=== PATIENT | female | born 1990 | race Caucasian/White ===

== ENCOUNTER 2016-09-09 20:45 | Emergency (ER) | payer MEDICAID ==
[~2016-09-09] VITALS: Ht 175.3 cm; Wt 59.4 kg
[~2016-09-09 20:45] MED LIST: IBU100LQ
[2016-09-09 21:42] VITALS: BP 128/74
[2016-09-09 22:27] LABS: BUN/Creatinine Ratio 14.9; Calcium 9.1 mg/dL (8.5-10.1); Potassium 3.7 mmol/L (3.5-5.1)
[2016-09-09 22:48] LABS: Basophils # (auto) 0 uL; Basophils % (auto) 0.3 % (0.0-2.0); Eosinophils # (auto) 0 uL; Eosinophils % (auto) 0.2 % (0.0-7.0); Hematocrit 47.8 % (36.0-46.0); Hemoglobin 15.5 g/dL (12.2-16.2); Lymphocytes # (auto) 1.4 uL; Lymphocytes % (auto) 20.7 % (10.0-50.0); Mean Corpuscular Hemoglobin 27.2 pg (28.0-32.0); Mean Corpuscular Hgb Conc. 32.5 g/dL (32.0-36.0); Mean Corpuscular Volume 83.7 fL (80.0-100.0); Mean Platelet Volume 9.4 fL (7.4-10.4); Monocytes # (auto) 0.5 uL; Monocytes % (auto) 7.3 % (0.0-12.0); Neutrophils # (auto) 4.9 uL; Neutrophils % (auto) 71.5 % (37.0-80.0); Platelet Count (auto) 209 10^3/uL (140-450); Red Cell Distribution Width 13.3 % (11.6-16.0); White Blood Cell 6.9 10^3/uL (4.4-10.8)
[2016-09-09 22:53] LABS: INR 1.04 (0.9-1.15); Partial Thromboplastin Time 26.8 sec (22.64-33.71); Prothrombin Time 10.7 sec (9.37-12.3)
== END 2016-09-10 02:02 | disposition left against medical advice (07) ==
LOC: ER 20:49
DX: R10.32 Left lower quadrant pain (principal); Z53.21 Procedure and treatment not carried out due to patient leaving prior to being seen by health care provider
CPT/HCPCS: 36415; 80048; 82150; 83690; 84702; 85025; 85610; 85730

== ENCOUNTER 2016-11-02 16:11 | Emergency (ER) | payer MEDICAID ==
[~2016-11-02] VITALS: Ht 175.3 cm; Wt 58.5 kg
[2016-11-02 16:26] VITALS: BP 108/70
[2016-11-02] MEDS ORDERED: MORPHINE SULF INJ 2 MG/ML SYRINGE 1ML IV ONE (17:15)
[2016-11-02] MEDS ORDERED: ONDANSETRON HCL 4 MG/2 ML VIAL IV ONE (17:15)
[2016-11-02] MEDS ORDERED: LORazepam 0.5 MG TAB PO ONE (17:45)
== END 2016-11-02 18:42 | disposition home or self-care (01) ==
LOC: EDBD 16:11 → ER 16:19
DX: M25.562 Pain in left knee (principal); R07.81 Pleurodynia; J45.909 Unspecified asthma, uncomplicated; F17.210 Nicotine dependence, cigarettes, uncomplicated; V49.49XA Driver injured in collision with other motor vehicles in traffic accident, initial encounter; Y93.89 Activity, other specified; Y99.8 Other external cause status; Y92.410 Unspecified street and highway as the place of occurrence of the external cause
CPT/HCPCS: 73562; 96374; 96375; 99284; J2270; J2405

== ENCOUNTER 2017-01-07 02:40 | Emergency (ER) | payer MEDICAID ==
[~2017-01-07] VITALS: Ht 175.3 cm; Wt 56.7 kg
[2017-01-07 03:24] VITALS: BP 120/76
== END 2017-01-07 05:20 | disposition left against medical advice (07) ==
LOC: ER 02:40
DX: R10.31 Right lower quadrant pain (principal); Z53.21 Procedure and treatment not carried out due to patient leaving prior to being seen by health care provider

== ENCOUNTER 2017-05-05 15:20 | Emergency (ER) | payer MEDICAID ==
[~2017-05-05] VITALS: Ht 175.3 cm; Wt 56.7 kg
[2017-05-05 15:52] VITALS: BP 145/76
[2017-05-05 16:52] LABS: Basophils # (auto) 0.1 uL; Basophils % (auto) 0.9 % (0.0-2.0); Eosinophils # (auto) 0.1 uL; Hematocrit 42.9 % (36.0-46.0); Hemoglobin 14.8 g/dL (12.2-16.2); Lymphocytes # (auto) 1.9 uL; Lymphocytes % (auto) 30.6 % (10.0-50.0); Mean Corpuscular Hemoglobin 29.2 pg (28.0-32.0); Mean Corpuscular Hgb Conc. 34.6 g/dL (32.0-36.0); Mean Corpuscular Volume 84.4 fL (80.0-100.0); Mean Platelet Volume 9.1 fL (6.9-10.8); Monocytes # (auto) 0.6 uL; Neutrophils # (auto) 3.7 uL; Neutrophils % (auto) 58.5 % (37.0-80.0); Nucleated Red Blood Cells % 0.1 %; Platelet Count (auto) 209 10^3/uL (140-450); Red Cell Distribution Width 13.3 % (11.8-14.3); White Blood Cell 6.4 10^3/uL (4.4-10.8)
[2017-05-05 17:03] LABS: Albumin 4.1 g/dL (3.4-5.0); Calcium 9.5 mg/dL (8.5-10.1); Potassium 4.1 mmol/L (3.5-5.1)
[2017-05-05 17:05] LABS: BUN/Creatinine Ratio 16.7
[2017-05-05 17:08] LABS: Bilirubin, Total 0.6 mg/dL (0.2-1.0); Total Protein 7.2 g/dL (6.4-8.2)
== END 2017-05-05 21:14 | disposition left against medical advice (07) ==
LOC: ER 15:23
DX: R10.9 Unspecified abdominal pain (principal); Z53.21 Procedure and treatment not carried out due to patient leaving prior to being seen by health care provider
CPT/HCPCS: 36415; 80053; 85025

== ENCOUNTER 2017-07-07 03:54 | Emergency (ER) | payer MEDICAID ==
[~2017-07-07] VITALS: Ht 175.3 cm; Wt 59.0 kg
[2017-07-07] MEDS ORDERED: SODIUM CHLORIDE 0.9% 1,000 ML IVB ONE (04:22)
[2017-07-07] MEDS ORDERED: ONDANSETRON HCL 4 MG/2 ML VIAL IV ONE (04:30)
[2017-07-07] MEDS ORDERED: KETOROLAC TROMETH 30 MG/ML 1ML VIAL IM ONE (04:30)
[2017-07-07] MEDS ORDERED: NALBUPHINE HCL 10 MG/1ml INJECTION IV ONE (04:30)
[2017-07-07 05:05] LABS: Basophils # (auto) 0 uL; Basophils % (auto) 0.5 % (0.0-2.0); Eosinophils # (auto) 0 uL; Eosinophils % (auto) 0.2 % (0.0-7.0); Hematocrit 43.2 % (36.0-46.0); Hemoglobin 14.7 g/dL (12.2-16.2); Lymphocytes # (auto) 1.5 uL; Lymphocytes % (auto) 20.4 % (10.0-50.0); Mean Corpuscular Hemoglobin 28.7 pg (28.0-32.0); Mean Corpuscular Hgb Conc. 34.1 g/dL (32.0-36.0); Mean Corpuscular Volume 84.1 fL (80.0-100.0); Mean Platelet Volume 8.7 fL (6.9-10.8); Monocytes # (auto) 0.5 uL; Monocytes % (auto) 6.5 % (0.0-12.0); Neutrophils # (auto) 5.3 uL; Neutrophils % (auto) 72.4 % (37.0-80.0); Platelet Count (auto) 206 10^3/uL (140-450); Red Cell Distribution Width 13.2 % (11.8-14.3); White Blood Cell 7.4 10^3/uL (4.4-10.8)
[2017-07-07 05:17] LABS: INR 1.05 (0.9-1.15); Partial Thromboplastin Time 29.2 sec (22.64-33.71); Prothrombin Time 11.4 sec (9.37-12.3)
[2017-07-07 05:30] LABS: Albumin 4.5 g/dL (3.4-5.0); Bilirubin, Total 0.9 mg/dL (0.2-1.0); Calcium 9.4 mg/dL (8.5-10.1); Total Protein 8.2 g/dL (6.4-8.2)
[2017-07-07 06:00] VITALS: BP 120/76
== END 2017-07-07 06:23 | disposition home or self-care (01) ==
LOC: ER 04:07
DX: R10.32 Left lower quadrant pain (principal); J45.909 Unspecified asthma, uncomplicated; F17.210 Nicotine dependence, cigarettes, uncomplicated; Z88.6 Allergy status to analgesic agent
CPT/HCPCS: 36415; 80053; 82150; 83690; 84702; 85025; 85610; 85730; 96360; 96372; 99284; J1885; J7030

== ENCOUNTER 2017-12-17 03:20 | Emergency (ER) | payer MEDICAID ==
[~2017-12-17] VITALS: Ht 175.3 cm; Wt 56.7 kg
[~2017-12-17 03:20] MED LIST changes: -IBU100LQ; +IBUP100S11
[2017-12-17 03:58] LABS: Basophils # (auto) 0.1 uL; Eosinophils # (auto) 0 uL
[2017-12-17 04:01] LABS: Basophils % (auto) 0.7 % (0.0-2.0); Eosinophils % (auto) 0.3 % (0.0-7.0); Hematocrit 41.7 % (36.0-46.0); Hemoglobin 14.1 g/dL (12.2-16.2); Lymphocytes % (auto) 16.6 % (10.0-50.0); Mean Corpuscular Hemoglobin 26.7 pg (28.0-32.0); Mean Corpuscular Hgb Conc. 33.8 g/dL (32.0-36.0); Monocytes % (auto) 8.8 % (0.0-12.0); Neutrophils # (auto) 8.8 uL; Neutrophils % (auto) 73.6 % (37.0-80.0); Platelet Count (auto) 220 10^3/uL (140-450); Red Blood Cells 5.28 10^6/uL (4.0-5.20); Red Cell Distribution Width 13.9 % (11.8-14.3); White Blood Cell 11.9 10^3/uL (4.4-10.8)
[2017-12-17 04:22] LABS: Albumin 3.9 g/dL (3.4-5.0); BUN/Creatinine Ratio 15.7; Bilirubin, Total 0.4 mg/dL (0.2-1.0); Calcium 9.1 mg/dL (8.5-10.1); Magnesium 2.3 mg/dL (1.6-2.6); Total Protein 7.6 g/dL (6.4-8.2)
[2017-12-17] MEDS ORDERED: IOHEXOL 300 MG/ML 100ML BOTTLE IJ ONE (07:44)
[2017-12-17] MEDS ORDERED: KETOROLAC TROMETH 30 MG/ML 1ML VIAL IV ONE (07:45)
[2017-12-17] MEDS ORDERED: ONDANSETRON HCL 4 MG/2 ML VIAL IV ONE (07:45)
[2017-12-17 08:27] VITALS: BP 131/96
== END 2017-12-17 09:10 | disposition home or self-care (01) ==
LOC: ER 03:20
DX: N20.0 Calculus of kidney (principal); J45.909 Unspecified asthma, uncomplicated; F17.210 Nicotine dependence, cigarettes, uncomplicated
CPT/HCPCS: 36415; 74176; 74177; 80053; 82150; 83690; 83735; 84702; 85025; 96374; 99285; J1885; Q9967

== ENCOUNTER 2018-08-30 19:06 | Emergency (ER) | payer MEDICAID ==
[~2018-08-30] VITALS: Ht 175.3 cm; Wt 64.9 kg
[2018-08-30 21:27] LABS: Basophils # (auto) 0 uL; Basophils % (auto) 0.5 % (0.0-2.0); Eosinophils # (auto) 0.1 uL; Eosinophils % (auto) 0.9 % (0.0-7.0); Hematocrit 42.2 % (36.0-46.0); Hemoglobin 14.3 g/dL (12.2-16.2); Lymphocytes # (auto) 1.2 uL; Lymphocytes % (auto) 17.8 % (10.0-50.0); Mean Corpuscular Hemoglobin 28.4 pg (28.0-32.0); Mean Corpuscular Volume 83.6 fL (80.0-100.0); Monocytes # (auto) 0.5 uL; Monocytes % (auto) 7.5 % (0.0-12.0); Neutrophils % (auto) 73.3 % (37.0-80.0); Nucleated Red Blood Cells % 0.1 %; Platelet Count (auto) 182 10^3/uL (140-450); Red Blood Cells 5.04 10^6/uL (4.0-5.20); Red Cell Distribution Width 13.6 % (11.8-14.3); White Blood Cell 6.9 10^3/uL (4.4-10.8)
[2018-08-30 21:46] LABS: Alanine Aminotransferase 17 U/L (13-56); Anion Gap 6 (5-15); Aspartate Aminotransferase 12 U/L (15-37); BUN/Creatinine Ratio 19.5; Blood Urea Nitrogen 17 mg/dL (7-18); Calcium 8.6 mg/dL (8.5-10.1); Carbon Dioxide 23 mmol/L (21-32); Chloride 109 mmol/L (98-107); GFR African American > 60 mL/min; GFR Non-African American > 60 mL/min; Glucose 105 mg/dL (74-106); Potassium 3.5 mmol/L (3.5-5.1); Sodium 138 mmol/L (136-145)
[2018-08-30 21:49] LABS: Alkaline Phosphatase 57 U/L (45-117); Bilirubin, Total 0.5 mg/dL (0.2-1.0); Total Protein 7.7 g/dL (6.4-8.2)
[2018-08-31] MEDS ORDERED: MECLIZINE HCL 25 MG TAB PO ONE (01:30)
[2018-08-31 01:45] VITALS: BP 105/70
[2018-08-31 02:51] LABS: Urine Bacteria NONE SEEN /hpf (None Seen); Urine Blood Negative /uL (Negative); Urine Mucus FEW (None Seen); Urine Specific Gravity 1.028 (1.001-1.035); Urine WBC <1 /hpf (0 - 5)
== END 2018-08-31 02:07 | disposition home or self-care (01) ==
LOC: ER 19:06 → EDBD 19:06 → ER 08-31 02:07
DX: N83.202 Unspecified ovarian cyst, left side (principal); N83.201 Unspecified ovarian cyst, right side; N93.8 Other specified abnormal uterine and vaginal bleeding; J45.909 Unspecified asthma, uncomplicated; F17.210 Nicotine dependence, cigarettes, uncomplicated; F12.90 Cannabis use, unspecified, uncomplicated; F15.90 Other stimulant use, unspecified, uncomplicated; Z79.899 Other long term (current) drug therapy
CPT/HCPCS: 36415; 76830; 76856; 80053; 81001; 84702; 85025

== ENCOUNTER 2020-01-05 13:46 | Emergency (ER) | payer MEDICAID ==
[~2020-01-05] VITALS: Ht 175.3 cm; Wt 63.5 kg
[2020-01-05 13:54] VITALS: BP 119/92
== END 2020-01-05 14:57 | disposition home or self-care (01) ==
LOC: ER 13:46
DX: L25.9 Unspecified contact dermatitis, unspecified cause (principal)
CPT/HCPCS: 73610

== ENCOUNTER 2021-01-12 11:01 | Emergency (ER) | payer MEDICAID ==
[~2021-01-12] VITALS: Ht 175.3 cm; Wt 63.5 kg
[2021-01-12 11:55] VITALS: BP 129/79
== END 2021-01-12 15:13 | disposition home or self-care (01) ==
LOC: ER 11:01
DX: L03.116 Cellulitis of left lower limb (principal); J45.909 Unspecified asthma, uncomplicated; F17.210 Nicotine dependence, cigarettes, uncomplicated; F12.10 Cannabis abuse, uncomplicated; F15.10 Other stimulant abuse, uncomplicated
CPT/HCPCS: 73610; 93971

== ENCOUNTER 2021-02-09 08:05 | Emergency (ER) | payer MEDICAID ==
[~2021-02-09] VITALS: Ht 175.3 cm; Wt 61.2 kg
[2021-02-09 08:33] LABS: Urine Bacteria MANY /hpf (None Seen); Urine Blood Negative /uL (Negative); Urine Mucus FEW (None Seen); Urine Specific Gravity 1.025 (1.001-1.035); Urine WBC 22 /hpf (0 - 5)
[2021-02-09 08:51] LABS: Basophils # (auto) 0 10 ^3/uL (0-0.2); Basophils % (auto) 0.9 % (0.0-2.0); Eosinophils # (auto) 0 10 ^3/uL (0-0.8); Eosinophils % (auto) 0.8 % (0.0-7.0); Hematocrit 40.6 % (36.0-46.0); Hemoglobin 14.3 g/dL (12.2-16.2); Lymphocytes # (auto) 1.8 10 ^3/uL (0.4-5.4); Lymphocytes % (auto) 31.8 % (10.0-50.0); Mean Corpuscular Hemoglobin 29.3 pg (28.0-32.0); Mean Corpuscular Hgb Conc. 35.1 g/dL (32.0-36.0); Mean Corpuscular Volume 83.3 fL (80.0-100.0); Monocytes # (auto) 0.5 10 ^3/uL (0-1.3); Monocytes % (auto) 9.5 % (0.0-12.0); Neutrophils # (auto) 3.1 10 ^3/uL (1.6-8.6); Platelet Count (auto) 165 10^3/uL (140-450); Red Blood Cells 4.87 10^6/uL (4.0-5.20); White Blood Cell 5.5 10^3/uL (4.4-10.8)
[2021-02-09 09:10] LABS: Albumin 4.1 g/dL (3.4-5.0); Potassium 3.9 mmol/L (3.5-5.1)
[2021-02-09 09:13] LABS: BUN/Creatinine Ratio 16.5; Bilirubin, Total 0.6 mg/dL (0.2-1.0); Total Protein 7.4 g/dL (6.4-8.2)
[2021-02-09] MEDS ORDERED: cefTRIAXone 1GM/50ML D5W 50 ML IV ONE (10:15)
[2021-02-09] MEDS ORDERED: SODIUM CHLORIDE 0.9% 1,000 ML IV ONE (10:15)
[2021-02-09 12:10] VITALS: BP 109/74
== END 2021-02-09 12:53 | disposition home or self-care (01) ==
LOC: ER 08:05
DX: R60.0 Localized edema (principal); L03.115 Cellulitis of right lower limb; N39.0 Urinary tract infection, site not specified; J45.909 Unspecified asthma, uncomplicated; F17.210 Nicotine dependence, cigarettes, uncomplicated; Z79.1 Long term (current) use of non-steroidal anti-inflammatories (NSAID)
CPT/HCPCS: 36415; 80053; 81001; 81025; 85025; 85049; 93970; 96365; 99284; J0696

== ENCOUNTER 2021-02-19 21:13 | Emergency (ER) | payer MEDICAID ==
[~2021-02-19] VITALS: Ht 172.7 cm; Wt 59.0 kg
[2021-02-19 21:40] VITALS: BP 138/90
== END 2021-02-20 02:56 | disposition left against medical advice (07) ==
LOC: EDUNIT# 21:13 → EDBD 21:13 → ER 21:15
DX: F41.9 Anxiety disorder, unspecified (principal); Z53.21 Procedure and treatment not carried out due to patient leaving prior to being seen by health care provider

== ENCOUNTER 2021-11-17 18:20 | Emergency (ER) | payer MEDICAID ==
[~2021-11-17] VITALS: Ht 165.1 cm; Wt 77.1 kg
[2021-11-17] MEDS ORDERED: HYDROmorphone HCL 2 MG/ML VL IV ONE (19:15)
[2021-11-17] MEDS ORDERED: ONDANSETRON HCL 4 MG/2 ML VIAL IV ONE (19:15)
[2021-11-17 22:00] VITALS: BP 136/83
[2021-11-17 22:03] LABS: Basophils # (auto) 0.1 10 ^3/uL (0-0.2); Basophils % (auto) 0.5 % (0.0-2.0); Eosinophils # (auto) 0.2 10 ^3/uL (0-0.8); Eosinophils % (auto) 1.3 % (0.0-7.0); Hematocrit 26.8 % (36.0-46.0); Hemoglobin 8.9 g/dL (12.2-16.2); Lymphocytes # (auto) 0.8 10 ^3/uL (0.4-5.4); Lymphocytes % (auto) 4.4 % (10.0-50.0); Mean Corpuscular Hemoglobin 27.6 pg (28.0-32.0); Mean Corpuscular Volume 83.5 fL (80.0-100.0); Monocytes # (auto) 1.8 10 ^3/uL (0-1.3); Monocytes % (auto) 9.3 % (0.0-12.0); Neutrophils # (auto) 15.9 10 ^3/uL (1.6-8.6); Neutrophils % (auto) 84.5 % (37.0-80.0); Red Blood Cells 3.21 10^6/uL (4.0-5.20); Red Cell Distribution Width 14.9 % (11.8-14.3); White Blood Cell 18.9 10^3/uL (4.4-10.8)
[2021-11-17 22:14] LABS: Urine Amorphous Crystal FEW /hpf (None Seen); Urine Bacteria NONE SEEN /hpf (None Seen); Urine Blood Negative /uL (Negative); Urine Specific Gravity 1.015 (1.001-1.035); Urine WBC 3 /hpf (0 - 5)
[2021-11-17 22:23] LABS: Albumin 2.7 g/dL (3.4-5.0); BUN/Creatinine Ratio 12.8; Calcium 8.7 mg/dL (8.5-10.1); Potassium 3.5 mmol/L (3.5-5.1)
[2021-11-17 22:25] LABS: Alcohol, Urine < 3.0 mg/dL (0-10); Amphetamine Screen, Urine NEGATIVE (NEGATIVE); Barbiturate Scree,Urine NEGATIVE (NEGATIVE); Benzodiazephine Screen, Urine NEGATIVE (NEGATIVE); Cannabinoid Screen, Urine NEGATIVE (NEGATIVE); Cocaine Screen, Urine NEGATIVE (NEGATIVE); Opiate Scree,Urine NEGATIVE (NEGATIVE); Phencyclidine Screen, Urine NEGATIVE (NEGATIVE)
[2021-11-17 22:26] LABS: Bilirubin, Total 0.4 mg/dL (0.2-1.0); Total Protein 6.4 g/dL (6.4-8.2)
[2021-11-18] MEDS ORDERED: OXYCODONE W/ ACETAMINOPHEN 5/325MG TABLET PO ONE (01:30)
== END 2021-11-18 01:50 | disposition left against medical advice (07) ==
LOC: ER 18:20 → EDBD 18:20 → ER 11-18 01:50
DX: O99.611 Diseases of the digestive system complicating pregnancy, first trimester (principal); O99.511 Diseases of the respiratory system complicating pregnancy, first trimester; J45.909 Unspecified asthma, uncomplicated; O99.331 Smoking (tobacco) complicating pregnancy, first trimester; Z86.2 Personal history of diseases of the blood and blood-forming organs and certain disorders involving the immune mechanism; Z79.1 Long term (current) use of non-steroidal anti-inflammatories (NSAID); Z3A.12 12 weeks gestation of pregnancy
CPT/HCPCS: 36415; 76700; 80053; 80307; 81001; 82150; 83690; 85025; 93005; 96374; 96375; 99285; J1170; J2405

== ENCOUNTER 2021-11-28 12:32 | Emergency (ER) | payer MEDICAID ==
[~2021-11-28] VITALS: Ht 175.3 cm; Wt 65.8 kg
[2021-11-28 14:59] LABS: Basophils # (auto) 0.1 10 ^3/uL (0-0.2); Eosinophils # (auto) 0.4 10 ^3/uL (0-0.8); Mean Corpuscular Hemoglobin 26.9 pg (28.0-32.0)
[2021-11-28 15:00] LABS: Basophils % (auto) 0.8 % (0.0-2.0); Eosinophils % (auto) 3.6 % (0.0-7.0); Hematocrit 27.2 % (36.0-46.0); Hemoglobin 9.1 g/dL (12.2-16.2); Lymphocytes # (auto) 1.6 10 ^3/uL (0.4-5.4); Lymphocytes % (auto) 13.6 % (10.0-50.0); Mean Corpuscular Hgb Conc. 33.3 g/dL (32.0-36.0); Mean Corpuscular Volume 80.7 fL (80.0-100.0); Monocytes # (auto) 1.2 10 ^3/uL (0-1.3); Monocytes % (auto) 10.3 % (0.0-12.0); Neutrophils # (auto) 8.2 10 ^3/uL (1.6-8.6); Neutrophils % (auto) 71.7 % (37.0-80.0); Red Blood Cells 3.37 10^6/uL (4.0-5.20); White Blood Cell 11.5 10^3/uL (4.4-10.8)
[2021-11-28 15:16] LABS: INR 1.03 (0.9-1.15); Partial Thromboplastin Time 26.5 sec (23.6-33.0)
[2021-11-28 15:17] LABS: Alanine Aminotransferase 27 U/L (13-56); Albumin 2.8 g/dL (3.4-5.0); Anion Gap 7 (5-15); Aspartate Aminotransferase 15 U/L (15-37); BUN/Creatinine Ratio 12.2; Blood Urea Nitrogen 12 mg/dL (7-18); Calcium 8.6 mg/dL (8.5-10.1); Carbon Dioxide 25 mmol/L (21-32); Chloride 106 mmol/L (98-107); GFR African American 85 mL/min; GFR Non-African American 70 mL/min; Glucose 93 mg/dL (74-106); Potassium 3.6 mmol/L (3.5-5.1); Sodium 138 mmol/L (136-145)
[2021-11-28 15:20] LABS: Alkaline Phosphatase 113 U/L (45-117); Bilirubin, Total 0.1 mg/dL (0.2-1.0); Total Protein 6.5 g/dL (6.4-8.2)
[2021-11-28] MEDS ORDERED: HYDROcodone-ACET 5/325MG TAB PO ONE (17:00)
[2021-11-28] MEDS ORDERED: ONDANSETRON HCL 4 MG/2 ML VIAL IV ONE (17:30)
[2021-11-28] MEDS ORDERED: fentaNYL CITRATE 100 MCG/2 ML VL IV ONE (17:30)
[2021-11-28 19:35] VITALS: BP 139/91
== END 2021-11-28 21:35 | disposition home or self-care (01) ==
LOC: ER 12:32 → EDBD 12:32 → ER 21:35
DX: O26.891 Other specified pregnancy related conditions, first trimester (principal); S22.31XA Fracture of one rib, right side, initial encounter for closed fracture; M54.6 Pain in thoracic spine; J45.909 Unspecified asthma, uncomplicated; F17.210 Nicotine dependence, cigarettes, uncomplicated; Z79.1 Long term (current) use of non-steroidal anti-inflammatories (NSAID); Z3A.13 13 weeks gestation of pregnancy; W19.XXXA Unspecified fall, initial encounter; Y93.89 Activity, other specified; Y92.89 Other specified places as the place of occurrence of the external cause; Y99.8 Other external cause status
CPT/HCPCS: 36415; 70450; 71111; 80053; 84702; 85025; 85610; 85730; 96374; 96375; 99285; J2405; J3010

== ENCOUNTER 2021-12-12 01:51 | Emergency (ER) | payer MEDICAID ==
[~2021-12-12] VITALS: Ht 175.3 cm; Wt 65.8 kg
[2021-12-12] MEDS ORDERED: SODIUM CHLORIDE 0.9% 1,000 ML IV ONE (03:15)
[2021-12-12 03:29] LABS: Basophils # (auto) 0.1 10 ^3/uL (0-0.2); Basophils % (auto) 0.6 % (0.0-2.0); Eosinophils # (auto) 0.3 10 ^3/uL (0-0.8); Eosinophils % (auto) 2.3 % (0.0-7.0); Hematocrit 27.9 % (36.0-46.0); Lymphocytes % (auto) 7.8 % (10.0-50.0); Mean Corpuscular Hemoglobin 25.6 pg (28.0-32.0); Mean Corpuscular Hgb Conc. 32.4 g/dL (32.0-36.0); Mean Corpuscular Volume 79.1 fL (80.0-100.0); Monocytes # (auto) 1.2 10 ^3/uL (0-1.3); Monocytes % (auto) 9.8 % (0.0-12.0); Neutrophils # (auto) 9.9 10 ^3/uL (1.6-8.6); Neutrophils % (auto) 79.5 % (37.0-80.0); Nucleated Red Blood Cells % 0.1 %; Red Blood Cells 3.53 10^6/uL (4.0-5.20); Red Cell Distribution Width 15.3 % (11.8-14.3); White Blood Cell 12.5 10^3/uL (4.4-10.8)
[2021-12-12 03:46] LABS: Calcium 8.9 mg/dL (8.5-10.1); Potassium 3.1 mmol/L (3.5-5.1)
[2021-12-12 03:47] LABS: Alcohol, Urine < 3.0 mg/dL (0-10); Amphetamine Screen, Urine NEGATIVE (NEGATIVE); Barbiturate Scree,Urine NEGATIVE (NEGATIVE); Benzodiazephine Screen, Urine NEGATIVE (NEGATIVE); Cannabinoid Screen, Urine POSITIVE (NEGATIVE); Cocaine Screen, Urine NEGATIVE (NEGATIVE); Opiate Scree,Urine NEGATIVE (NEGATIVE); Phencyclidine Screen, Urine NEGATIVE (NEGATIVE)
[2021-12-12 03:50] LABS: BUN/Creatinine Ratio 11.8; Magnesium 1.9 mg/dL (1.6-2.6)
[2021-12-12 03:53] LABS: Urine Bacteria FEW /hpf (None Seen); Urine Blood Negative /uL (Negative); Urine Specific Gravity 1.022 (1.001-1.035); Urine WBC 2 /hpf (0 - 5)
[2021-12-12 03:57] LABS: Bilirubin, Total 0.1 mg/dL (0.2-1.0); Total Protein 6.8 g/dL (6.4-8.2)
[2021-12-12 05:59] VITALS: BP 142/90
[2021-12-12] MEDS ORDERED: ONDANSETRON HCL 4 MG/2 ML VIAL IV ONE (07:00)
== END 2021-12-12 07:48 | disposition home or self-care (01) ==
LOC: ER 01:51 → EDBD 01:51 → ER 07:48
DX: O99.352 Diseases of the nervous system complicating pregnancy, second trimester (principal); R56.9 Unspecified convulsions; O99.512 Diseases of the respiratory system complicating pregnancy, second trimester; J45.909 Unspecified asthma, uncomplicated; O99.332 Smoking (tobacco) complicating pregnancy, second trimester; Z3A.16 16 weeks gestation of pregnancy
CPT/HCPCS: 36415; 70450; 71045; 80053; 80307; 81001; 83735; 84484; 85025; 96361; 96374; 99285; J2405; J7030

== ENCOUNTER 2022-02-19 12:05 | Observation (INO) | payer MEDICAID ==
[~2022-02-19] VITALS: Ht 175.3 cm; Wt 74.8 kg
[2022-02-19 12:05] VITALS: BP 144/79
[2022-02-19] MEDS ORDERED: PREN-96 PO (13:15)
== END 2022-02-19 15:55 | disposition home or self-care (01) ==
LOC: EDUNIT# 12:05 → ER 12:05 → EDBD 12:05 → LDRP 12:17 → UNDOADMOB 12:17 → LDRP 12:47
PROVIDERS: ADMIT Obstetrics & Gynecology; ATTEND Obstetrics & Gynecology
DX: O26.892 Other specified pregnancy related conditions, second trimester (principal); R55 Syncope and collapse; R10.11 Right upper quadrant pain; R51.9 Headache, unspecified; H53.8 Other visual disturbances; O14.92 Unspecified pre-eclampsia, second trimester; O99.512 Diseases of the respiratory system complicating pregnancy, second trimester; J45.909 Unspecified asthma, uncomplicated; O99.342 Other mental disorders complicating pregnancy, second trimester; F41.8 Other specified anxiety disorders; O99.332 Smoking (tobacco) complicating pregnancy, second trimester; F17.210 Nicotine dependence, cigarettes, uncomplicated; Z3A.25 25 weeks gestation of pregnancy
CPT/HCPCS: 59025; 76815; 81002; 94760; 99284; G0378

== ENCOUNTER 2022-04-07 14:57 | Observation (INO) | payer MEDICAID ==
[~2022-04-07] VITALS: Ht 175.3 cm; Wt 79.5 kg
[~2022-04-07 14:57] MED LIST changes: +PREN-96 PO
[2022-04-07 15:00] VITALS: BP 129/68
== END 2022-04-07 17:00 | disposition home or self-care (01) ==
LOC: EDBD 14:57 → ER 14:57 → LDRP 15:30
PROVIDERS: ADMIT Obstetrics & Gynecology; ATTEND Obstetrics & Gynecology
DX: O99.891 Other specified diseases and conditions complicating pregnancy (principal); M54.50 Low back pain, unspecified; O99.513 Diseases of the respiratory system complicating pregnancy, third trimester; J45.909 Unspecified asthma, uncomplicated; O99.333 Smoking (tobacco) complicating pregnancy, third trimester; F17.210 Nicotine dependence, cigarettes, uncomplicated; D64.9 Anemia, unspecified; O99.353 Diseases of the nervous system complicating pregnancy, third trimester; F41.9 Anxiety disorder, unspecified; F32.9 Major depressive disorder, single episode, unspecified; O26.893 Other specified pregnancy related conditions, third trimester; O99.013 Anemia complicating pregnancy, third trimester; Z3A.32 32 weeks gestation of pregnancy; Z98.891 History of uterine scar from previous surgery; W18.30XA Fall on same level, unspecified, initial encounter; Y92.89 Other specified places as the place of occurrence of the external cause; Y93.89 Activity, other specified; Y99.8 Other external cause status
CPT/HCPCS: 59025; 76815; 94760; 99284; G0378

== ENCOUNTER 2022-06-01 21:14 | Emergency (ER) | payer MEDICAID ==
[~2022-06-01] VITALS: Ht 175.3 cm; Wt 72.3 kg
[2022-06-01 21:31] VITALS: BP 140/90
[2022-06-01 22:02] LABS: Eosinophils # (auto) 0.2 10 ^3/uL (0-0.8); Mean Corpuscular Hemoglobin 24.3 pg (28.0-32.0); Mean Corpuscular Hgb Conc. 32.7 g/dL (32.0-36.0); Mean Corpuscular Volume 74.4 fL (80.0-100.0)
[2022-06-01 22:03] LABS: Basophils # (auto) 0.2 10 ^3/uL (0-0.2); Basophils % (auto) 1.4 % (0.0-2.0); Eosinophils % (auto) 1.2 % (0.0-7.0); Hematocrit 38.8 % (36.0-46.0); Hemoglobin 12.7 g/dL (12.2-16.2); Lymphocytes # (auto) 2.8 10 ^3/uL (0.4-5.4); Lymphocytes % (auto) 17.3 % (10.0-50.0); Monocytes % (auto) 12.6 % (0.0-12.0); Neutrophils # (auto) 10.8 10 ^3/uL (1.6-8.6); Neutrophils % (auto) 67.5 % (37.0-80.0); Red Blood Cells 5.22 10^6/uL (4.0-5.20); Red Cell Distribution Width 16.5 % (11.8-14.3)
[2022-06-01 22:21] LABS: Albumin 3.8 g/dL (3.4-5.0); Calcium 8.4 mg/dL (8.5-10.1); Potassium 3.4 mmol/L (3.5-5.1)
[2022-06-01 22:24] LABS: BUN/Creatinine Ratio 11.8
[2022-06-01 22:35] LABS: Bilirubin, Total 0.2 mg/dL (0.2-1.0); Total Protein 8.1 g/dL (6.4-8.2)
== END 2022-06-01 22:15 | disposition left against medical advice (07) ==
LOC: EDBD 21:14 → ER 21:16
DX: R07.89 Other chest pain (principal); R06.02 Shortness of breath; R11.2 Nausea with vomiting, unspecified; R10.2 Pelvic and perineal pain; Z53.21 Procedure and treatment not carried out due to patient leaving prior to being seen by health care provider
CPT/HCPCS: 36415; 71045; 80053; 83880; 84484; 84702; 85025; 93005

== ENCOUNTER 2022-08-04 14:56 | Emergency (ER) | payer MEDICAID ==
[~2022-08-04] VITALS: Ht 175.3 cm; Wt 79.3 kg
[2022-08-04] MEDS ORDERED: SODIUM CHLORIDE 0.9% 1,000 ML IV ONE (15:15)
[2022-08-04 15:22] VITALS: BP 151/91
[2022-08-04 16:17] LABS: Basophils # (auto) 0.1 10 ^3/uL (0-0.2); Eosinophils # (auto) 0.1 10 ^3/uL (0-0.8); Mean Corpuscular Hgb Conc. 31.3 g/dL (32.0-36.0); Monocytes # (auto) 1.4 10 ^3/uL (0-1.3); Nucleated Red Blood Cells % 0.1 %
[2022-08-04 16:19] LABS: Basophils % (auto) 0.9 % (0.0-2.0); Eosinophils % (auto) 1.2 % (0.0-7.0); Hemoglobin 11.2 g/dL (12.2-16.2); Lymphocytes # (auto) 2.7 10 ^3/uL (0.4-5.4); Mean Corpuscular Hemoglobin 23.1 pg (28.0-32.0); Monocytes % (auto) 12.4 % (0.0-12.0); Neutrophils # (auto) 7.3 10 ^3/uL (1.6-8.6); Neutrophils % (auto) 62.5 % (37.0-80.0); Red Blood Cells 4.86 10^6/uL (4.0-5.20); Red Cell Distribution Width 16.3 % (11.8-14.3); White Blood Cell 11.6 10^3/uL (4.4-10.8)
[2022-08-04 17:44] LABS: Albumin 3.7 g/dL (3.4-5.0); Calcium 9.4 mg/dL (8.5-10.1); Potassium 4.3 mmol/L (3.5-5.1)
[2022-08-04 17:48] LABS: BUN/Creatinine Ratio 13.8; Bilirubin, Total 0.4 mg/dL (0.2-1.0)
== END 2022-08-04 20:34 | disposition left against medical advice (07) ==
LOC: ER 14:56 → EDBD 14:56 → ER 20:34
DX: R55 Syncope and collapse (principal); R51.9 Headache, unspecified; D72.829 Elevated white blood cell count, unspecified; F17.210 Nicotine dependence, cigarettes, uncomplicated; F12.10 Cannabis abuse, uncomplicated; F15.10 Other stimulant abuse, uncomplicated; J45.909 Unspecified asthma, uncomplicated
CPT/HCPCS: 36415; 80053; 84702; 85025; 93005

== ENCOUNTER 2024-06-19 06:35 | Emergency (ER) | payer MEDICAID ==
[~2024-06-19] VITALS: Ht 170.2 cm; Wt 63.0 kg
[2024-06-19 06:48] VITALS: BP 142/68; PULSE 102; RESP 20; O2SAT 98
[2024-06-19] MEDS ORDERED: HYDROMORPHONE HCL 1 MG/ML INJ IV ONE (07:00)
[2024-06-19] MEDS ORDERED: ONDANSETRON HCL 4 MG/2 ML VIAL IV ONE (07:00)
[2024-06-19] MEDS ORDERED: SODIUM CHLORIDE 0.9% 1,000 ML IV ONE ×2 (07:00)
--- NOTE | 2024-06-19 07:00 | ED.PDOC ---
GI ASSESSMENT HPI Comments 34Y F with PMHx gallstones, CHF, HTN, asthma, depression, anxiety, and splenectomy presents to ED via EMS for chief complaint abd pain x2hrs. Pt's pain is located at RUQ and is rated at a level of 10/10. Additional symptoms include nausea and vomiting. Pt states she drank eggnog last night and woke up today with the abd pain. Pt drinks alcohol, uses marijuana, and is a smoker. Pt has h/o meth use. No known allergies. Chief Complaint: Abdominal Pain Time Seen by MD: 06:51 Primary Care Provider: Luis Reviewed Notes: Medications, Allergies Allergies: Coded Allergies: NO KNOWN ALLERGIES (Unverified , 04/07/22) Home Meds Reported Medications Vit W/ Ferrous Fumara ( One Daily) Daily Tab, 1 TAB PO DAILY, #90 TAB 3 Refills 02/19/22 Ibuprofen (Motrin) 100 Mg/5 Ml Ud 03/21/10 Information Source: Patient Mode of Arrival: EMS Brought in by: EMS Timing: Hours Duration: Since onset Prehospital treatment: None Quality: Sharp Vomitus: Watery Stool: Brown Severity: Severe Recent: None Recent Hx of: None Pain Location: RUQ Modifying Factors: Nothing Associated sign and symptoms: Nausea, Vomiting, Abdominal Pain Past Medical History PAST MEDICAL HISTORY: Anemia, Anxiety, Asthma, Cancer, CHF, Depression, Gal lstones, HTN, Seizures Surgical History: Surgical History (Other): Splenectomy 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: Endometriosis, Ovarian Cysts Family History Family History: Reviewed,noncontributory to illness Family History (Other): Mother has epilepsy Social History Smoker: Cigarettes, Less Than 1 Pack/Day Alcohol: Rarely Drugs: Marijuana Lives In: Home Constitutional: denies: chills, diaphoresis, fatigue, fever, malaise, sweats, weakness, others EENTM: denies: blurred vision, double vision, ear bleeding, ear discharge, ear drainage, ear pain, ear ringing, eye pain, eye redness, hearing loss, mouth pain, mouth swelling, nasal discharge, nose bleeding, nose congestion, nose pain, photophobia, tearing, throat pain, throat swelling, voice changes, others Respiratory: denies: cough, hemoptysis, orthopnea, SOB at rest, shortness of breath, SOB with excertion, stridor, wheezing, others Cardiovascular: denies: chest pain, dizzy spells, diaphoresis, Dyspnea on exertion, edema, irregular heart beat, left arm pain, lightheadedness, palpitations, PND, syncope, others Gastrointestinal: reports: abdominal pain, nausea, vomiting; denies: abdomen distended, blood streaked bowels, constipated, diarrhea, dysphagia, difficulty swallowing, hematemesis, melena, poor appetite, poor fluid intake, rectal bleeding, rectal pain, others Genitourinary: denies: abnormal vagina bleeding, burning, dyspareunia, dysuria, flank pain, frequency, hematuria, incontinence, pain, , vagina discharge, urgency, others Neurological: denies: dizziness, fainting, headache, left sided numbness, left sided weakness, numbness, paresthesia, pre-existing deficit, right sided numbness, right sided weakness, seizure, speech problems, tingling, tremors, weakness, others Musculoskeletal: denies: back pain, gout, joint pain, joint swelling, muscle pain, muscle stiffness, neck pain, others Integumetry: denies: bruises, change in color, change in hair/nails, dryness, laceration, lesions, lumps, rash, wounds, others Allergic/Immunocompromised: denies: Difficulty Healing, Frequent Infections, Hives, Itching, others Hematologic/Lymphatic: denies: anemia, blood clots, easy bleeding, easy bruising, swollen glands, others Endocrine: denies: excessive hunger, excessive sweating, excessive thirst, excessive urination, flushing, intolerance to cold, intolerance to heat, unexplained weight gain, unexplained weight loss, others Psychiatric: denies: anxiety, bipolar disorder, depression, hopeless, panic disorder, schizophrenia, sleepless, suicidal, others All Other Systems: Reviewed and Negative Physical Exam General Appearance: Moderate Distress, Normal, Severe Distress HEENT: Normal ENT Inspection, Pharynx Normal, TMs Normal Neck: Full Range of Motion, Non-Tender, Normal, Normal Inspection Respiratory: Chest Non-Tender, Lungs Clear, No Accessory Muscle Use, No Respiratory Distress, Normal Breath Sounds Cardiovascular: No Edema, No JVD, No Murmur, No Gallop, Normal Peripheral Pulses, Regular Rate/Rhythm Breast Exam: Deferred Gastrointestinal: No Organomegaly, No Pulsatile Mass, Normal Bowel Sounds, Soft Genitalia: Deferred Pelvic: Deferred Rectal: Deferred Extremities: No calf tenderness, Normal capillary refill, Normal inspection, Normal range of motion, Non-tender, No pedal edema Musculoskeletal : Apperance: Normal 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 Was a procedure done?: No GI differential Dx Differential Diagnosis: Cholecystitis, Constipation, Diverticular disease, Esophagitis, Gastritis/PUD, Gastroenteritis X-Ray, Labs, Meds, VS Vital Signs Date Time Temp Pulse Resp B/P (MAP) Pulse Ox O2 Delivery O2 Flow Rate FiO2 06/19/24 06:48 98.6 102 20 142/68 (92) 98 06/19/24 06:38 99 Lab Test 06/19/24 06:57 Range/Units White Blood Count Pending Red Blood Count Pending Hemoglobin Pending Hematocrit Pending Mean Corpuscular Volume Pending Mean Corpuscular Hemoglobin Pending Mean Corpuscular Hemoglobin Concent Pending Red Cell Distribution Width Pending Platelet Count Pending Mean Platelet Volume Pending Neutrophils (%) (Auto) Pending Lymphocytes (%) (Auto) Pending Monocytes (%) (Auto) Pending Basophils (%) (Auto) Pending Neutrophils # (Auto) Pending Lymphocytes # (Auto) Pending Monocytes # (Auto) Pending Sodium Level Pending Potassium Level Pending Chloride Level Pending Carbon Dioxide Level Pending Anion Gap Pending Blood Urea Nitrogen Pending Creatinine Pending Glomerular Filtration Rate Calc Pending BUN/Creatinine Ratio Pending Serum Glucose Pending Calcium Level Pending Total Bilirubin Pending Patient alert. Complaining of abdominal pain. History of gallstones. Vitals stable. She does have a midline scar. Splenectomy. Severe abdominal pain. Moving all extremities. Reviewed her previous visit. Counseled patient on effects of smoking cigarettes for 15 minutes. Counseled patient on effects of using drugs 15 minutes. Establish intravenous access. Was given fluids. Was given Dilaudid. Was given Zofran. Explained to the patient. Continue cardiac monitoring Time of 1ST Reevaluation: 07:21 Reevaluation 1ST: Unchanged Patient Education/Counseling: Diagnosis, Treatment Family Education/Counseling: No Family Present Departure 1 Departure Time of Disposition: 07:10 Impression: Primary Impression: Acute abdominal pain Disposition: ADMITTED INPATIENT Admit to: Med Surg Condition: Guarded Critical Care Note Critical Care Time?: Yes (45 min-critical care time only) Stability Stability form required: No Heart Score Heart Score: Heart Score Response (Comments) Value History N/A 0 EKG N/A 0 Age N/A 0 Risk Factors N/A 0 Troponin N/A 0 Total 0 I personally scribed for SAQIB MILLER MD ([email or web address]) on 06/19/24 at 07:00. Electronically submitted by Mary Moya ([employer]). I personally scribed for SAQIB MILLER MD ([email or web address]) on 06/19/24 at 07:11. Electronically submitted by Mary Moya ([employer]). SAQIB MILLER MD Jun 19, 2024 07:00
[2024-06-19 07:16] LABS: Basophils # (auto) 0.1 10 ^3/uL (0-0.2); Basophils % (auto) 0.8 % (0.0-2.0); Eosinophils # (auto) 0.1 10 ^3/uL (0-0.8); Eosinophils % (auto) 1.2 % (0.0-7.0); Hematocrit 54.6 % (36.0-46.0); Hemoglobin 17.5 g/dL (12.2-16.2); Lymphocytes # (auto) 3.2 10 ^3/uL (0.4-5.4); Lymphocytes % (auto) 24.9 % (10.0-50.0); Mean Corpuscular Volume 84.3 fL (80.0-100.0); Monocytes # (auto) 1.4 10 ^3/uL (0-1.3); Monocytes % (auto) 11.1 % (0.0-12.0); Nucleated Red Blood Cells % 0.1 %; Platelet Count (auto) 321 10^3/uL (140-450); Red Blood Cells 6.48 10^6/uL (4.0-5.20); Red Cell Distribution Width 16.5 % (11.8-14.3); White Blood Cell 12.9 10^3/uL (4.4-10.8)
[2024-06-19 07:24] LABS: Chloride 105 mmol/L (98-107); Potassium 4.5 mmol/L (3.5-5.1); Sodium 137 mmol/L (136-145)
[2024-06-19 07:25] LABS: Anion Gap 8 (5-15); Calcium 10.7 mg/dL (8.7-10.4); Carbon Dioxide 24 mmol/L (20-31)
[2024-06-19 07:30] LABS: BUN/Creatinine Ratio 10.7 (10.0-20.0); Blood Urea Nitrogen 16 mg/dL (9-23); Glucose 72 mg/dL (74-106)
[2024-06-19 07:33] LABS: Bilirubin, Total 0.6 mg/dL (0.2-1.0)
--- NOTE | 2024-06-19 07:41 | ECG ---
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
== END 2024-06-19 07:37 | disposition left against medical advice (07) ==
LOC: EDBD 06:35 → ER 06:35
DX: R10.11 Right upper quadrant pain (principal); I11.0 Hypertensive heart disease with heart failure; I50.9 Heart failure, unspecified; J45.909 Unspecified asthma, uncomplicated; F17.210 Nicotine dependence, cigarettes, uncomplicated; F12.10 Cannabis abuse, uncomplicated; Z90.81 Acquired absence of spleen
CPT/HCPCS: 36415; 80048; 82247; 85025; 93005

== ENCOUNTER 2024-09-17 21:41 | Emergency (ER) | payer MEDICAID ==
[~2024-09-17] VITALS: Ht 175.3 cm; Wt 77.2 kg
--- NOTE | 2024-09-17 22:07 | ED.PDOC ---
Musculoskeletal HPI Comments 34 y.o female with PMHx of CHF, collapsed lungs and previous right hip sx, presents to the ED via EMS s/p slip and fall today. Patient reports slipping at home on tile lance, states she landed on her right side and now complains of severe right rib pain and moderate pain to right hip. Patient does report positive head trauma but no LOC, nausea, vomiting, lightheadedness, chest pain or new/worsening SOB. Chief Complaint: Fall Injury Time Seen by MD: 21:45 Primary Care Provider: Luis Reviewed Notes: Nurses Notes, Algorithm Design Engineer Notes, Medications, Allergies Allergies: Coded Allergies: NO KNOWN ALLERGIES (Unverified , 04/07/22) Home Meds Reported Medications Vit W/ Ferrous Fumara ( One Daily) Daily Tab, 1 TAB PO DAILY, #90 TAB 3 Refills 02/19/22 Ibuprofen (Motrin) 100 Mg/5 Ml Ud 03/21/10 Information Source: Patient, Emergency Med Personnel Mode of Arrival: EMS Location: Right Extremity Location: Hip, Other (rib ) Timing: Minutes Severity: Moderate Able to Move Extremity: No Bear Weight: Limited Pain: Severe Mechanism: None Circumstances: Fall Onset of Symptoms: After Trauma Symptoms: Pain DVT Risk Factors: CHF History of: Hip Fracture Associated signs and symptoms: Other Past Medical History PAST MEDICAL HISTORY: Anemia, Anxiety, Asthma, Cancer, CHF, Depression, Gallstones, HTN, Seizures 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: Endometriosis, Ovarian Cysts Family History Family History: Reviewed,noncontributory to illness Family History (Other): Mother has epilepsy Social History Smoker: Cigarettes, Less Than 1 Pack/Day Alcohol: Rarely Drugs: Marijuana Lives In: Home Constitutional: denies: chills, diaphoresis, fatigue, fever, malaise, sweats, weakness, others EENTM: denies: blurred vision, double vision, ear bleeding, ear discharge, ear drainage, ear pain, ear ringing, eye pain, eye redness, hearing loss, mouth pain, mouth swelling, nasal discharge, nose bleeding, nose congestion, nose pain, photophobia, tearing, throat pain, throat swelling, voice changes, others Respiratory: denies: cough, hemoptysis, orthopnea, SOB at rest, shortness of breath, SOB with excertion, stridor, wheezing, others Cardiovascular: denies: chest pain, dizzy spells, diaphoresis, Dyspnea on exertion, edema, irregular heart beat, left arm pain, lightheadedness, palpitations, PND, syncope, others Gastrointestinal: denies: abdomen distended, abdominal pain, blood streaked bowels, constipated, diarrhea, dysphagia, difficulty swallowing, hematemesis, melena, nausea, poor appetite, poor fluid intake, rectal bleeding, rectal pain, vomiting, others Genitourinary: denies: abnormal vagina bleeding, burning, dyspareunia, dysuria, flank pain, frequency, hematuria, incontinence, pain, , vagina discharge, urgency, others Neurological: denies: dizziness, fainting, headache, left sided numbness, left sided weakness, numbness, paresthesia, pre-existing deficit, right sided numbness, right sided weakness, seizure, speech problems, tingling, tremors, weakness, others Musculoskeletal: reports: others (right hip and rib pain ); denies: back pain, gout, joint pain, joint swelling, muscle pain, muscle stiffness, neck pain Integumetry: denies: bruises, change in color, change in hair/nails, dryness, laceration, lesions, lumps, rash, wounds, others Allergic/Immunocompromised: denies: Difficulty Healing, Frequent Infections, Hives, Itching, others Hematologic/Lymphatic: denies: anemia, blood clots, easy bleeding, easy bruising, swollen glands, others Endocrine: denies: excessive hunger, excessive sweating, excessive thirst, excessive urination, flushing, intolerance to cold, intolerance to heat, unexplained weight gain, unexplained weight loss, others Psychiatric: denies: anxiety, bipolar disorder, depression, hopeless, panic disorder, schizophrenia, sleepless, suicidal, others All Other Systems: Reviewed and Negative Physical Exam General Appearance: No Apparent Distress, Normal HEENT: Head (Atraumatic. Normocephalic. No hematomas or lacerations. Negative raccoon eyes.), Normal ENT Inspection, Pharynx Normal, TMs Normal Neck: Full Range of Motion, Non-Tender, Normal, Normal Inspection Respiratory: Chest Non-Tender, Lungs Clear, No Accessory Muscle Use, No Respiratory Distress, Normal Breath Sounds Cardiovascular: No Edema, No JVD, No Murmur, No Gallop, Normal Peripheral Pulses, Regular Rate/Rhythm Breast Exam: Deferred Gastrointestinal: No Organomegaly, Non Tender, No Pulsatile Mass, Normal Bowel Sounds, Soft Genitalia: Deferred Pelvic: Deferred Rectal: Deferred Extremities: Tender (moderate tenderness to right leg and hip ), Other (No swelling, deformities, contusions, shortening, or inversion ) Musculoskeletal : Location: Right Extremity Location: Other (rib) Apperance: Tenderness: Severe (Right lateral rib ) 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 Was a procedure done?: No Differential Diagnosis EXT Differential Diagnosis: Fracture, Sprain, Dislocation, Contusion, Strain Other Differential Diagnosis Pneumothorax, hemothorax X-Ray, Labs, Meds, VS Vital Signs Date Time Temp Pulse Resp B/P (MAP) Pulse Ox O2 Delivery O2 Flow Rate FiO2 09/17/24 22:57 70 20 114/71 09/17/24 21:52 97.9 70 22 104/71 (82) 99 Current Medications Medications (Trade) Dose Ordered Sig/Mike Route Start Time Stop Time Status Last Admin Morphine Sulfate 4 mg ONCE ONCE IM 09/17/24 22:15 09/17/24 22:16 DC 09/17/24 22:57 Ondansetron HCl (Zofran Po) 4 mg ONCE ONCE PO 09/17/24 22:15 09/17/24 22:16 DC 09/17/24 22:57 X-Ray, Labs, Meds, VS Comment CT Chest/Abd/Pelv IMPRESSION: 1. Scattered Chronic appearing bilateral rib fractures. 2. No noncontrast evidence of acute visceral injury or acute fracture 3. Dilated main pulmonary artery measuring 3.4 cm which can be seen in the setting of pulmonary hypertension. 4. Cholelithiasis. 5. Marked atrophy of the left kidney 6. Mild distal colonic diverticulosis 7. Circumferential bladder wall thickening, nonspecific. Correlate with urinalysis if there is clinical concern for cystitis XR Left Femur FINDINGS/IMPRESSION: : There is no evidence of acute fracture or dislocation. Multiple plates and multiple screw fixation of the right pelvis. Overlying soft tissues are intact MDM: Patient with history as above presented with right rib and right hip pain. History obtained from patient. Patient was nontoxic, stable, afebrile, ambulatory, no acute distress. Exam as above. Independently reviewed imaging. CT chest/abdomen/pelvis did not show any acute fractures or visceral injury. Left femur x-ray did not show acute fracture. Reviewed external records. All findings were discussed with the patient. Differential diagnosis considered. Overall presentation is consistent with contusion. Low suspicion for acute fracture, dislocation, TBI, intracranial bleed. Patient was treated with morphine with improvement in symptoms. Patient was reevaluated and vital signs were reviewed. Consideration was given for admission, but the patient was stable for outpatient management. Patient states that she did not want any pain medications prescribed. She states that she has ibuprofen. Disposition: Discussed the need to follow up diagnostics, including incidental findings. Discharged the patient with instructions to obtain outpatient follow up in 1-2 days of today's symptoms and findings, with strict return precautions if patient develops new or worsening symptoms. This medical document was created using the [employer] dictation system. Although this document has been carefully reviewed, there may still be some phonetic and typographical errors, which are due to imperfections of the software program, and do not reflect any compromise in the patient's medical care. Time of 1ST Reevaluation: 22:18 Reevaluation 1ST: Unchanged Time of 2ND Reevaluation: 00:34 Reevaluation 2ND: Improved Patient Education/Counseling: Diagnosis, Treatment, Prognosis Family Education/Counseling: No Family Present Departure 1 Departure Time of Disposition: 00:34 Impression: Primary Impression: Rib contusion Qualified Codes: S20.211A - Contusion of right front wall of thorax, initial encounter Additional Impression: Fall Qualified Codes: W19.XXXA - Unspecified fall, initial encounter Disposition: HOME / SELF CARE / HOMELESS Condition: Fair Critical Care Note Critical Care Time?: No Stability Stability form required: No Heart Score Heart Score: Heart Score Response (Comments) Value History N/A 0 EKG N/A 0 Age N/A 0 Risk Factors N/A 0 Troponin N/A 0 Total 0 I personally scribed for ER ([email or web address]) on 09/17/24 at 22:18. Electronically submitted by Opal Gonzalez ([facility]). TYLER LORENZANA PAC Sep 17, 2024 22:07 ER Sep 17, 2024 22:18
[2024-09-17] MEDS: ONDANSETRON ODT 4 MG TAB PO ONE (22:57)
[2024-09-17] MEDS: MORPHINE SULFATE 4 MG/ML SYR/VIAL IM ONE (22:57)
--- NOTE | 2024-09-17 23:34 | DVH ---
CLINICAL INDICATION: R/o fracture TECHNIQUE: XY R FEMUR XRAY Comparison: None FINDINGS/IMPRESSION: : There is no evidence of acute fracture or dislocation. Multiple plates and multiple screw fixation of the right pelvis. Overlying soft tissues are intact
--- NOTE | 2024-09-18 00:10 | DVH ---
CLINICAL HISTORY: R/o rib fractures TECHNIQUE: CT of the chest, abdomen and pelvis was performed without IV contrast. This exam was perfo rmed according to our departmental dose optimization program. Up-to-date CT equipment and radiation d ose reduction techniques are utilized as appropriate. CTDI: [CTDIvol] DLP: 650.72 COMPARISON: None FINDINGS: CHEST FINDINGS: Lower Neck: Unremarkable Axilla, Mediastinum and Cynthia: No mediastinal or axillary lymphadenopathy. Residual thymic tissue in t he anterior mediastinum. Limited evaluation of the cynthia in the absence of intravenous contrast. Heart and Great Vessels: Normal-sized heart. Thoracic aorta is normal in caliber with trace calcifie d atherosclerotic plaque. Dilated main pulmonary artery measuring 3.4 cm on series 2, image 62 Airway, Lungs and Pleura: Linear lower lung atelectasis or scarring. Trachea and central airways are patent. No airspace consolidation, pleural effusion, or pneumothorax. Chest Wall and Osseous Structures: A few chronic appearing bilateral rib fractures. No destructive os seous lesion. Abdomen and Pelvis Findings: Liver and Biliary system: Cholelithiasis, otherwise unremarkable Spleen: Prior splenectomy. Adrenal Glands and Kidneys: Normal adrenal glands. Marked atrophy of the left kidney there is no righ t hydronephrosis or nephrolithiasis. Pancreas and Retroperitoneum: Unremarkable. Aorta and Major Vessels: Unremarkable. Bowel, Mesentery and Peritoneal space: Small and large bowel loops are normal in caliber. There is mi ld distal colonic diverticulosis . Normal appendix. No free air or fluid collection. Pelvis: Circumferential wall thickening of the urinary bladder. The uterus and left ovary is grossly unremarkable. Probable cystic lesion in the right ovary measuring 2.8 cm on series 2, image 222. Ther e is no pelvic lymphadenopathy. Abdominal wall and Osseous Structures: There is a plate and multiple screw fixation of the right mahendra c bone, posterior right acetabulum, extending into right ischium. No destructive osseous lesion. IMPRESSION: 1. Scattered Chronic appearing bilateral rib fractures. 2. No noncontrast evidence of acute visceral injury or acute fracture 3. Dilated main pulmonary artery measuring 3.4 cm which can be seen in the setting of pulmonary hyper tension. 4. Cholelithiasis. 5. Marked atrophy of the left kidney 6. Mild distal colonic diverticulosis 7. Circumferential bladder wall thickening, nonspecific. Correlate with urinalysis if there is clini kim concern for cystitis
[2024-09-18 00:56] VITALS: BP 123/73; TEMP 97.6
[2024-09-18 00:57] VITALS: PULSE 75; RESP 18; O2SAT 96
== END 2024-09-18 01:10 | disposition home or self-care (01) ==
LOC: EDBD 21:41 → ER 21:41
DX: S20.211A Contusion of right front wall of thorax, initial encounter (principal); M25.551 Pain in right hip; F17.210 Nicotine dependence, cigarettes, uncomplicated; J45.909 Unspecified asthma, uncomplicated; I11.0 Hypertensive heart disease with heart failure; I50.9 Heart failure, unspecified; F41.9 Anxiety disorder, unspecified; F32.9 Major depressive disorder, single episode, unspecified; K80.20 Calculus of gallbladder without cholecystitis without obstruction; W01.0XXA Fall on same level from slipping, tripping and stumbling without subsequent striking against object, initial encounter; Y93.89 Activity, other specified; Y92.009 Unspecified place in unspecified non-institutional (private) residence as the place of occurrence of the external cause; Y99.8 Other external cause status
CPT/HCPCS: 71250; 73552; 74176; 96372; 99285; J2270; Q0162